=== PATIENT | male | born 1955 | race Caucasian/White ===

== ENCOUNTER → 2018-08-23 | Outpatient (CLI) | payer OTHER | LOC: FLAB 15:14 | PROVIDERS: ATTEND Family Medicine Sports Medicine | DX: M50.022 Cervical disc disorder at C5-C6 level with myelopathy (principal); M50.023 Cervical disc disorder at C6-C7 level with myelopathy ==

== ENCOUNTER 2018-11-14 08:51 | Day surgery (SDC) | payer OTHER ==
[2018-11-14] MEDS ORDERED: LIDOCAINE 1% 300 MG/30 ML SDV SC ONE (08:55)
--- NOTE | 2018-11-14 11:42 | CPIP ---
DATE OF PROCEDURE: 11/14/2018 PROCEDURE: LINQ insertion. INDICATIONS: Cryptogenic TIA. Evaluate for occult atrial fibrillation. Need for long-term ambulato ry cardiac monitoring. COMPLICATIONS: None. DESCRIPTION OF PROCEDURE: Informed consent was obtained. The patient was prepped and draped in ster ile fashion. 1% lidocaine was used for local anesthesia over the left parasternal region. Using sta ndard technique, a [employer] LINQ device was inserted and the incision was closed with [address] julio[address] St erile dressing applied. CONCLUSIONS: Successful LINQ insertion. Serial number [id number]. R-wave interrogation pending. Follow up in the office in 1 week for staple removal and device interrogation. /[id number]/[id number]
== END 2018-11-14 11:30 | disposition home or self-care (01) ==
LOC: FCATH 08:51
PROVIDERS: ATTEND Internal Medicine Cardiovascular Disease
PROC: 0JH632Z Insertion of Monitoring Device into Chest Subcutaneous Tissue and Fascia, Percutaneous Approach (ICD-10-PCS; principal; 2018-11-14)
DX: G45.9 Transient cerebral ischemic attack, unspecified (principal)
CPT/HCPCS: 33285; C1764